=== PATIENT | male | born 1945 | race Caucasian/White ===

== ENCOUNTER 2017-07-22 05:15 | Inpatient (IN) | payer MEDICARE, BC ==
[2017-07-18 12:34] LABS: BASOPHILS # (AUTO) 0.1 X10'3 (0-0.2); BASOPHILS % (AUTO) 1.2 % (0-1); EOSINOPHILS # (AUTO) 1.2 X10'3 (0-0.9); EOSINOPHILS % (AUTO) 11.5 % (0-6); LYMPHOCYTES # (AUTO) 2.3 X10'3 (1.1-4.8); LYMPHOCYTES % (AUTO) 22.1 % (21-51); MEAN CORPUSCULAR HEMOGLOBIN 31.1 PG (27.0-31.0); MEAN CORPUSCULAR HGB CONC 34.7 % (33.0-36.5); MEAN CORPUSCULAR VOLUME 89.8 FL (78-98); MEAN PLATELET VOLUME 8.8 FL (7.4-10.4); MONOCYTES # (AUTO) 1.1 X10'3 (0-0.9); NEUTROPHILS # (AUTO) 5.5 X10'3 (1.8-7.7); NEUTROPHILS % (AUTO) 54.2 % (42-75); PRE OP HEMOGLOBIN 13.9 g/dL (14.0-17.9); PRE OP PLATELET COUNT 220 X10'3 (140-440); RED BLOOD COUNT 4.46 X10'6 (4.70-6.10); RED CELL DISTRIBUTION WIDTH 14.4 % (11.5-14.5)
[2017-07-18 12:47] LABS: PRE OP PROTIME 9.9 SECONDS (9.0-12.0)
[2017-07-18 12:51] LABS: ALBUMIN 3.8 G/DL (3.4-5.0); ALBUMIN/GLOBULIN RATIO 1.1 (1.1-1.5); ALKALINE PHOSPHATASE 77 IU/L (46-116); BLOOD UREA NITROGEN 22 MG/DL (7-18); BUN/CREATININE RATIO 18.3 (5.4-32.0); CALCIUM 9.2 MG/DL (8.5-10.1); CHLORIDE 108 MMOL/L (99-107); PRE OP ALT 48 U/L (30-65); PRE OP ANION GAP 12 (8-16); PRE OP AST 31 U/L (10-37); PRE OP BILIRUB, TOTAL 0.6 MG/DL (0.0-1.0); PRE OP GLUCOSE 79 MG/DL (70-104); PRE OP POTASSIUM 4.3 MMOL/L (3.4-5.1); PRE OP SODIUM 148 MMOL/L (135-145); TOTAL CARBON DIOXIDE 27.8 MMOL/L (24-32); TOTAL PROTEIN 7.2 G/DL (6.4-8.2); eGFR 60 ML/MIN
[2017-07-18 12:52] LABS: CLARITY,URINE SLIGHTLY CLOUDY (Clear); COLOR,URINE YELLOW (Yellow); GLUCOSE, URINE NEGATIVE (Neg); KETONES,URINE NEGATIVE (Neg); LEUKOCYTE ESTERASE ,URINE NEGATIVE (Neg); NITRITES, URINE NEGATIVE (Neg); OCCULT BLOOD,URINE NEGATIVE (Neg); PROTEIN,URINE NEGATIVE (Neg); UROBILINOGEN,URINE 0.2 E.U/dL (0.2-1.0)
[2017-07-18 12:53] LABS: UA COLLECTION TYPE VOIDED
[2017-07-18 13:00] LABS: BACTERIA,URINE NONE SEEN /HPF (Neg); SQUAMOUS EPITHELIAL CELL,UR FEW /LPF (FEW); WBC,URINE 0-4 /HPF (0-4)
[2017-07-18 13:01] LABS: HYALINE CASTS 0-3 /LPF (NEGATIVE); MUCUS STRANDS MODERATE /LPF (Neg); RBC,URINE 0-2 /HPF (0-2); SPERM FEW /HPF (NEGATIVE)
[~2017-07-22] VITALS: Ht 182.9 cm; Wt 127.0 kg
[2017-07-22] VITALS (17 sets, daily range): BP systolic 115–155; BP diastolic 52–91
[~2017-07-22 05:15] MED LIST: APIX5TAB3 PO; ASPI-611 PO; BUPR100T4 PO; CALC1TAB PO; CHOL400T14 PO; DOCU-28 PO; METO100T14 PO; MULT-342 PO; PANT-47 PO; ROSU20TA PO; VENL150C2 PO; ringers solution, lacted 1,000 ML IV SCH
[2017-07-22] MEDS ORDERED: oxyCODONE SR 10mg (sust. release) tab PO ONE (05:30)
[2017-07-22] MEDS ORDERED: ceFAZolin inj. 3,000 MG in normal saline 100ml IV soln 100 ML IV ONE (05:30)
[2017-07-22] MEDS ORDERED: famotidine 20mg tablet PO ONE (05:30)
[2017-07-22] MEDS ORDERED: acetaminophen 325mg tablet PO ONE (05:30)
[2017-07-22] MEDS ORDERED: DOCUMENT DATE & TIME OF BETA-BLOCKER PO ONE (05:30)
[2017-07-22] MEDS ORDERED: gabapentin 300mg capsule PO ONE (05:30)
[2017-07-22] MEDS ORDERED: LIDOcaine 1% (10mg/ml) 2ml vial ONE (06:02)
[2017-07-22] MEDS ORDERED: ROPIVAcaine 0.5% (5mg/ml) 30ml vial ONE ×2 (06:28→07:15)
[2017-07-22] MEDS ORDERED: bacitracin inj 150,000 UNIT in sodium chloride irrig. sol 3,000 ML IR ONE (07:00)
[2017-07-22] MEDS ORDERED: propofol 1000mg/100ml bottle 100 ML IV ONE (07:08)
[2017-07-22] MEDS ORDERED: BUPIVAcaine 0.5% inj/PF 30 ML ONE (07:14)
[2017-07-22] MEDS ORDERED: MORPHINE SULFATE/PF 0.5 MG/ML 10ML AMPUL ONE (07:17)
[2017-07-22] MEDS ORDERED: MIDAZolam 5mg/5ml vial ONE (07:17)
[2017-07-22] MEDS ORDERED: METO100T14 PO (07:22)
[2017-07-22] MEDS ORDERED: ringers solution, lacted 1,000 ML IV ONE (08:26)
[2017-07-22] MEDS ORDERED: diphenhydrAMINE 50 mg/ml inj IV PRN (08:30)
[2017-07-22] MEDS ORDERED: labetalol 20mg/4ml (5mg/ml) syringe IV PRN (08:30)
[2017-07-22] MEDS ORDERED: morphine 2 MG/ML inj. syringe IV PRN ×2 (08:30)
[2017-07-22] MEDS ORDERED: ondansetron/PF 4mg/2ml inj IV PRN ×3 (08:30→10:10)
[2017-07-22] MEDS ORDERED: hydrALAZINE 20mg/ml inj. IV PRN (08:30)
[2017-07-22] MEDS ORDERED: meperidine/PF 50mg/ml syringe IV PRN ×2 (08:30)
[2017-07-22] MEDS ORDERED: meperidine/PF 50mg/ml syringe IV ONE (08:30)
[2017-07-22] MEDS ORDERED: LIDOcaine 1%/PF (10mg/ml) 5ml vial ONE (09:18)
[2017-07-22] MEDS ORDERED: ceFAZolin 1000mg inj ONE (09:22)
[2017-07-22] MEDS ORDERED: oxyCODONE IR 5mg (immed. release) tablet PO PRN (10:10)
[2017-07-22] MEDS ORDERED: HYDROmorphone inj. 0.5 MG/0.5 ML DISP.SYRIN IV PRN (10:10)
[2017-07-22] MEDS ORDERED: bisacodyl 10mg suppository rectal RC PRN (10:10)
[2017-07-22] MEDS ORDERED: diphenhydrAMINE 25mg capsule PO PRN ×2 (10:10)
[2017-07-22] MEDS ORDERED: magnesium hydroxide 30ml (MOM) UD suspension PO PRN (10:10)
[2017-07-22] MEDS ORDERED: acetaminophen 325mg tablet PO PRN (10:10)
[2017-07-22] MEDS: gabapentin 300mg capsule PO SCH ×2 (15:23→21:23)
[2017-07-22] MEDS: oxyCODONE IR 5mg (immed. release) tablet PO PRN ×2 (15:23→21:23)
[2017-07-22] MEDS: acetaminophen 325mg tablet PO SCH ×2 (15:25→19:58)
[2017-07-22] MEDS: potassium cl 20mEq in 1/2 NS 1,000 ML IV SCH ×2 (17:03→18:08)
[2017-07-22] MEDS: cefazolin 1gm/NS 100mL 100 ML IV SCH (17:03)
[2017-07-22] MEDS: buPROPion 100mg tablet PO SCH (19:59)
[2017-07-22] MEDS: ascorbic acid 500mg tablet PO SCH (19:59)
[2017-07-22] MEDS: celeCOXIB 100mg capsule PO SCH (19:59)
[2017-07-22] MEDS: metoprolol tartrate 50mg tablet PO SCH (20:00)
[2017-07-22] MEDS: sennosides 8.6mg tablet PO SCH (21:23)
[2017-07-23] VITALS (7 sets, daily range): BP systolic 144–155; BP diastolic 57–72
[2017-07-23] MEDS: potassium cl 20mEq in 1/2 NS 1,000 ML IV SCH ×3 (00:22→21:27)
[2017-07-23] MEDS: cefazolin 1gm/NS 100mL 100 ML IV SCH (00:22)
[2017-07-23] MEDS: acetaminophen 325mg tablet PO SCH (01:39)
[2017-07-23] MEDS: oxyCODONE IR 5mg (immed. release) tablet PO PRN (01:40)
[2017-07-23 06:38] LABS: BASOPHILS % (AUTO) 0.2 % (0-1); EOSINOPHILS # (AUTO) 0.3 X10'3 (0-0.9); EOSINOPHILS % (AUTO) 2.3 % (0-6); HEMATOCRIT 33.8 % (42.0-52.0); HEMOGLOBIN 11.6 g/dl (14.0-17.9); LYMPHOCYTES # (AUTO) 1.2 X10'3 (1.1-4.8); LYMPHOCYTES % (AUTO) 8.8 % (21-51); MEAN CORPUSCULAR HEMOGLOBIN 31.4 PG (27.0-31.0); MEAN CORPUSCULAR HGB CONC 34.3 % (33.0-36.5); MEAN CORPUSCULAR VOLUME 91.6 FL (78-98); MEAN PLATELET VOLUME 8.8 FL (7.4-10.4); MONOCYTES # (AUTO) 1.5 X10'3 (0-0.9); MONOCYTES % (AUTO) 10.9 % (2-12); NEUTROPHILS # (AUTO) 10.6 X10'3 (1.8-7.7); NEUTROPHILS % (AUTO) 77.8 % (42-75); PLATELET COUNT 177 X10'3 (140-440); RED BLOOD COUNT 3.69 X10'6 (4.70-6.10); RED CELL DISTRIBUTION WIDTH 14.5 % (11.5-14.5); WHITE BLOOD COUNT 13.6 X10'3 (4.5-11.0)
[2017-07-23 06:40] LABS: ANION GAP 8 (8-16); CHLORIDE 103 MMOL/L (99-107); INR 1.2 INR; POTASSIUM 4.2 MMOL/L (3.5-5.1); PROTHROMBIN TIME 12.4 SECONDS (9.0-12.0); SODIUM 138 MMOL/L (135-145); TOTAL CARBON DIOXIDE 26.7 MMOL/L (24-32)
[2017-07-23] MEDS ORDERED: atorvastatin 20mg tablet PO SCH (08:00)
[2017-07-23] MEDS: metoprolol tartrate 50mg tablet PO SCH ×2 (08:00→21:11)
[2017-07-23] MEDS: buPROPion 100mg tablet PO SCH ×2 (08:32→21:11)
[2017-07-23] MEDS: multivitamins, therapeutics tablet PO SCH (08:33)
[2017-07-23] MEDS: pantoprazole 40mg Tablet.DR PO SCH (08:33)
[2017-07-23] MEDS: ascorbic acid 500mg tablet PO SCH ×2 (08:33→21:11)
[2017-07-23] MEDS: gabapentin 300mg capsule PO SCH ×3 (08:34→22:41)
[2017-07-23] MEDS: venlafaxine XR 75mg capsule (Q24H) PO SCH (08:35)
[2017-07-23] MEDS: celeCOXIB 100mg capsule PO SCH ×2 (08:35→22:41)
[2017-07-23] MEDS: oxyCODONE/APAP 10/325mg tablet PO PRN ×3 (08:57→22:41)
[2017-07-23] MEDS ORDERED: warfarin 7.5mg tablet PO ONE (10:00)
[2017-07-23] MEDS: sennosides 8.6mg tablet PO SCH (21:10)
[2017-07-23] MEDS: atorvastatin 20mg tablet PO SCH (21:15)
[2017-07-24] MEDS: potassium cl 20mEq in 1/2 NS 1,000 ML IV SCH (02:08)
[2017-07-24] MEDS: oxyCODONE/APAP 10/325mg tablet PO PRN ×3 (04:29→14:51)
[2017-07-24 06:43] LABS: BASOPHILS % (AUTO) 0.3 % (0-1); EOSINOPHILS # (AUTO) 0.8 X10'3 (0-0.9); EOSINOPHILS % (AUTO) 7.1 % (0-6); HEMATOCRIT 31.7 % (42.0-52.0); HEMOGLOBIN 10.7 g/dl (14.0-17.9); LYMPHOCYTES # (AUTO) 1.3 X10'3 (1.1-4.8); LYMPHOCYTES % (AUTO) 12.3 % (21-51); MEAN CORPUSCULAR HGB CONC 33.7 % (33.0-36.5); MEAN PLATELET VOLUME 8.7 FL (7.4-10.4); MONOCYTES # (AUTO) 1.3 X10'3 (0-0.9); MONOCYTES % (AUTO) 11.7 % (2-12); NEUTROPHILS # (AUTO) 7.4 X10'3 (1.8-7.7); NEUTROPHILS % (AUTO) 68.6 % (42-75); PLATELET COUNT 168 X10'3 (140-440); RED BLOOD COUNT 3.45 X10'6 (4.70-6.10); RED CELL DISTRIBUTION WIDTH 14.5 % (11.5-14.5); WHITE BLOOD COUNT 10.8 X10'3 (4.5-11.0)
[2017-07-24 06:52] LABS: INR 1.2 INR; PROTHROMBIN TIME 12.4 SECONDS (9.0-12.0)
[2017-07-24 06:58] VITALS: BP 110/62
[2017-07-24] MEDS: venlafaxine XR 75mg capsule (Q24H) PO SCH (07:29)
[2017-07-24] MEDS: ascorbic acid 500mg tablet PO SCH ×2 (07:29→19:32)
[2017-07-24] MEDS: buPROPion 100mg tablet PO SCH ×2 (07:29→19:32)
[2017-07-24] MEDS: gabapentin 300mg capsule PO SCH ×3 (07:29→19:32)
[2017-07-24] MEDS: pantoprazole 40mg Tablet.DR PO SCH (07:29)
[2017-07-24] MEDS: celeCOXIB 100mg capsule PO SCH ×2 (07:29→19:32)
[2017-07-24] MEDS: multivitamins, therapeutics tablet PO SCH (07:29)
[2017-07-24] MEDS: Protein Shake (high protein) 240ml (8oz) cup PO SCH ×5 (08:24→18:00)
[2017-07-24 10:00] VITALS: BP 127/59
[2017-07-24] MEDS ORDERED: warfarin 10mg tablet PO ONE (10:00)
[2017-07-24] MEDS ORDERED: acetaminophen 325mg tablet PO PRN (10:10)
[2017-07-24 18:00] VITALS: BP 125/56
[2017-07-24] MEDS: atorvastatin 20mg tablet PO SCH (19:32)
[2017-07-24] MEDS: sennosides 8.6mg tablet PO SCH (19:32)
[2017-07-24] MEDS: metoprolol tartrate 50mg tablet PO SCH (19:32)
[2017-07-24 19:34] VITALS: BP 107/44
[2017-07-24 19:35] VITALS: BP 106/72
[2017-07-24 22:21] VITALS: BP 128/49
[2017-07-25] MEDS: oxyCODONE/APAP 10/325mg tablet PO PRN ×2 (03:47→13:27)
[2017-07-25 06:00] VITALS: BP 125/62
[2017-07-25 07:22] LABS: BASOPHILS % (AUTO) 0.3 % (0-1); EOSINOPHILS # (AUTO) 0.8 X10'3 (0-0.9); EOSINOPHILS % (AUTO) 6.6 % (0-6); HEMATOCRIT 33.1 % (42.0-52.0); LYMPHOCYTES # (AUTO) 1.2 X10'3 (1.1-4.8); LYMPHOCYTES % (AUTO) 9.6 % (21-51); MEAN CORPUSCULAR HEMOGLOBIN 30.5 PG (27.0-31.0); MEAN CORPUSCULAR HGB CONC 33.4 % (33.0-36.5); MEAN CORPUSCULAR VOLUME 91.4 FL (78-98); MEAN PLATELET VOLUME 8.8 FL (7.4-10.4); MONOCYTES # (AUTO) 1.1 X10'3 (0-0.9); MONOCYTES % (AUTO) 8.3 % (2-12); NEUTROPHILS # (AUTO) 9.6 X10'3 (1.8-7.7); NEUTROPHILS % (AUTO) 75.2 % (42-75); PLATELET COUNT 202 X10'3 (140-440); RED BLOOD COUNT 3.62 X10'6 (4.70-6.10); RED CELL DISTRIBUTION WIDTH 14.5 % (11.5-14.5); WHITE BLOOD COUNT 12.8 X10'3 (4.5-11.0)
[2017-07-25 07:32] LABS: INR 1.5 INR; PROTHROMBIN TIME 15.4 SECONDS (9.0-12.0)
[2017-07-25] MEDS: Protein Shake (high protein) 240ml (8oz) cup PO SCH ×2 (08:00→13:38)
[2017-07-25] MEDS: buPROPion 100mg tablet PO SCH (08:04)
[2017-07-25] MEDS: celeCOXIB 100mg capsule PO SCH (08:04)
[2017-07-25] MEDS: venlafaxine XR 75mg capsule (Q24H) PO SCH (08:04)
[2017-07-25] MEDS: pantoprazole 40mg Tablet.DR PO SCH (08:04)
[2017-07-25] MEDS: ascorbic acid 500mg tablet PO SCH (08:04)
[2017-07-25] MEDS: multivitamins, therapeutics tablet PO SCH (08:04)
[2017-07-25] MEDS: gabapentin 300mg capsule PO SCH ×2 (08:04→13:27)
[2017-07-25 10:00] VITALS: BP 117/38
[2017-07-25] MEDS ORDERED: warfarin 5mg tablet PO ONE (10:00)
== END 2017-07-25 14:10 | DRG 470 ==
LOC: PAS IN 05:15 → EDSTATUS 07:30 → ORTHO 4S 11:00
PROVIDERS: ADMIT Specialist; ATTEND Specialist
PROC: 3E0T3BZ Introduction of Anesthetic Agent into Peripheral Nerves and Plexi, Percutaneous Approach (ICD-10-PCS; 2017-07-22)
PROC: 0SRC0J9 Replacement of Right Knee Joint with Synthetic Substitute, Cemented, Open Approach (ICD-10-PCS; principal; 2017-07-22 07:19)
DX: M17.11 Unilateral primary osteoarthritis, right knee (principal); I48.2 Chronic atrial fibrillation; E66.9 Obesity, unspecified; F32.9 Major depressive disorder, single episode, unspecified; E78.5 Hyperlipidemia, unspecified; G47.30 Sleep apnea, unspecified; D50.0 Iron deficiency anemia secondary to blood loss (chronic); I10 Essential (primary) hypertension; K21.9 Gastro-esophageal reflux disease without esophagitis; Z79.01 Long term (current) use of anticoagulants; Z68.38 Body mass index [BMI] 38.0-38.9, adult
CPT/HCPCS: 36415; 71046; 73560; 80051; 80053; 81001; 85025; 85610; 85730; 87070; 97110; 97116; 97162; 97530; A6449; A6455; A7000; C1713; C1758; C1776; J0690; J1200; J2001; J2250; J2274; J2704; J2795; J3490; J7030; J7120

== ENCOUNTER 2018-09-23 13:16 | Outpatient (CLI) | payer MEDICARE, BC ==
[~2018-09-23 13:16] MED LIST changes: -ROSU20TA PO; +ROSU20TA2 PO; -ringers solution, lacted 1,000 ML IV SCH
== END 2018-09-23 23:59 | disposition home or self-care (01) ==
LOC: RAD 13:16
PROVIDERS: ATTEND Specialist
DX: M25.561 Pain in right knee (principal); M11.262 Other chondrocalcinosis, left knee; Z96.651 Presence of right artificial knee joint
CPT/HCPCS: 73565